=== PATIENT | female | born 1965 | race African-American/Black ===

== ENCOUNTER 2017-01-04 12:42 | Emergency (ER) | payer OTHER ==
[~2017-01-04] VITALS: Ht 172.7 cm; Wt 77.1 kg
[2017-01-04 12:53] VITALS: BP 152/97
[2017-01-04] MEDS ORDERED: ORETIC25 MG PO (12:56)
--- NOTE | 2017-01-04 13:07 | NUR ---
PATIENT PRESENTS TO ED STATES SHE THINKS SHES HAVING A REATION TO HYDROCHLORATHIAZIDE, C/O DRY MOUTH,HEADACHE, HAND AND FEET TINGLING WHEN WAKING UP, AND OVERALL FEELING DEHYDRATED .DENIES N/V/D; SKIN IS PINK/WARM/DRY; AAOX4 WITH EVEN AND STEADY GAIT; LUNGS CLEAR BL; HR EVEN AND REGULAR; PT DENIES ANY FEVER, CP, SOB, OR COUGH AT THIS TIME; PATIENT STATES PAIN OF 6/10/HEADACHE AT THIS TIME; PATIENT POSITIONED FOR COMFORT; HOB ELEVATED; BEDRAILS UP X2; BED DOWN. ER MD MADE AWARE OF PT STATUS.
--- NOTE | 2017-01-04 13:19 | NUR ---
DR. GUEVARA AT BEDSIDE
[2017-01-04 13:33] VITALS: BP 140/94
--- NOTE | 2017-01-04 13:34 | NUR ---
Patient discharged with v/s stable. Written and verbal after care instructions given and explained. Patient verbalized understanding. Ambulatory with steady gait. All questions addressed prior to discharge. Advised to follow up with PMD.
== END 2017-01-04 13:34 | disposition home or self-care (01) ==
LOC: MED 12:42
DX: E86.0 Dehydration (principal); I10 Essential (primary) hypertension; F17.200 Nicotine dependence, unspecified, uncomplicated; Z90.722 Acquired absence of ovaries, bilateral

== ENCOUNTER 2018-03-25 10:21 | Emergency (ER) | payer OTHER ==
[~2018-03-25] VITALS: Ht 172.7 cm; Wt 81.9 kg
[~2018-03-25 10:21] MED LIST: ORE25 PO
[2018-03-25 10:24] VITALS: BP 137/81
--- NOTE | 2018-03-25 10:31 | NUR ---
PT TAKEN IN WHEELCHAIR TO ER BED 02
--- NOTE | 2018-03-25 10:34 | NUR ---
REPORT GIVEN TO CRIS العراقي
--- NOTE | 2018-03-25 10:41 | NUR ---
PATIENT PRESENTS TO ED WITH PT STATES 5 DAYS AGO AWOKE WITH SORENESS TO RIGHT UPPER THIGH RADIATING RLE---WENT TO WORK AND BY TH PAIN WAS SEVERE---- SEEN IN [facility]RGENT CARE DEPT RX "MUSCLE RELAXANT" AND MOTRIN 600MG PT CONTINUES TO BE SEVERE .DENIES N/V/D; SKIN IS PINK/WARM/DRY; AAOX4 WITH EVEN AND STEADY GAIT; LUNGS CLEAR BL; HR EVEN AND REGULAR; PT DENIES ANY FEVER, CP, SOB, OR COUGH AT THIS TIME; PATIENT STATES PAIN OF 10/10 AT THIS TIME; VSS; PATIENT POSITIONED FOR COMFORT; HOB ELEVATED; BEDRAILS UP X2; BED DOWN. ER MD MADE AWARE OF PT STATUS.
[2018-03-25] MEDS ORDERED: MORPHINE SULFATE 4 MG/ML SYR IM ONE (11:00)
--- NOTE | 2018-03-25 11:21 | NUR ---
MEDICATED WRITTEN ---WILL OBSERVE FOR PAIN CONTROL
--- NOTE | 2018-03-25 11:28 | NUR ---
Note undone in EDM - 03/25/18 at 1130 by KATHYA Patient discharged with v/s stable. Written and verbal after care instructions given and explained. Patient alert, oriented and verbalized understanding of instructions. Ambulatory with steady gait. All questions addressed prior to discharge. ID band removed. Patient advised to follow up with PMD. Rx of ZOFRAN/MOTRIN/PRILOSEC given. Patient educated on indication of medication including possible reaction and side effects. Opportunity to ask questions provided and answered.
--- NOTE | 2018-03-25 12:07 | NUR ---
Patient discharged with v/s stable. Written and verbal after care instructions given and explained. Patient alert, oriented and verbalized understanding of instructions. Ambulatory with steady gait. All questions addressed prior to discharge. ID band removed. Patient advised to follow up with PMD. Rx of VALIUM/NORCO/MOTRIN given. Patient educated on indication of medication including possible reaction and side effects. Opportunity to ask questions provided and answered.
[2018-03-25 12:08] VITALS: BP 132/78
== END 2018-03-25 12:07 | disposition home or self-care (01) ==
LOC: MED 10:21
DX: M25.551 Pain in right hip (principal); M79.1 Myalgia; I10 Essential (primary) hypertension; Z79.899 Other long term (current) drug therapy
CPT/HCPCS: 96372; 99283; J2270

== ENCOUNTER 2019-02-21 06:05 | Day surgery (SDC) | payer OTHER ==
[~2019-02-21] VITALS: Ht 172.7 cm; Wt 80.7 kg
[2019-02-21] MEDS ORDERED: AMLO10TA4 PO (07:04)
[2019-02-21] MEDS ORDERED: LIDOCAINE 2% 100 MG/5 ML UJET TP ONE (07:29)
[2019-02-21] MEDS ORDERED: fentaNYL 0.05 MG/ML VIAL ONE (07:29)
[2019-02-21] MEDS ORDERED: fentaNYL 0.05 MG/ML VIAL IVP ONE (08:40)
== END 2019-02-21 08:43 | disposition home or self-care (01) ==
LOC: MDS 06:05 → MMU 06:08 → MDS 08:43
PROVIDERS: ATTEND Internal Medicine Gastroenterology
DX: K63.89 Other specified diseases of intestine (principal); K57.30 Diverticulosis of large intestine without perforation or abscess without bleeding; I10 Essential (primary) hypertension; E66.3 Overweight; F17.210 Nicotine dependence, cigarettes, uncomplicated; Z68.27 Body mass index [BMI] 27.0-27.9, adult; Z90.721 Acquired absence of ovaries, unilateral; Z72.89 Other problems related to lifestyle; Z79.899 Other long term (current) drug therapy; Z98.890 Other specified postprocedural states
CPT/HCPCS: 45380; 88305; J3010

== ENCOUNTER 2021-12-16 20:21 | Emergency (ER) | payer OTHER ==
[~2021-12-16] VITALS: Ht 174 cm; Wt 85.0 kg
[~2021-12-16 20:21] MED LIST changes: +AMLO10TA89 PO; +HYDR-4004 PO; -ORE25 PO
[2021-12-16 20:32] VITALS: BP 150/90
[2021-12-16] MEDS ORDERED: IBUPROFEN 600 MG TAB PO ONE (21:05)
[2021-12-16] MEDS ORDERED: IBUP-2213 PO (21:44)
[2021-12-16] MEDS ORDERED: ACET-10509 PO (21:44)
[2021-12-16] MEDS ORDERED: BACO TP (21:44)
--- NOTE | 2021-12-16 22:40 | NUR ---
d/c with VSS. d/c education given. opportunity to ask questions givne and answered. rx of motrin, tylenol and bacitracin given.
[2021-12-17] MEDS ORDERED: BACO TP (13:21)
[2021-12-17] MEDS ORDERED: ACET-10509 PO (13:21)
[2021-12-17] MEDS ORDERED: IBUP-2213 PO (13:21)
== END 2021-12-16 22:40 | disposition home or self-care (01) ==
LOC: MED 20:21
DX: S93.401A Sprain of unspecified ligament of right ankle, initial encounter (principal); M79.662 Pain in left lower leg; Z79.2 Long term (current) use of antibiotics; Z79.1 Long term (current) use of non-steroidal anti-inflammatories (NSAID); Z79.899 Other long term (current) drug therapy; V03.90XA Pedestrian on foot injured in collision with car, pick-up truck or van, unspecified whether traffic or nontraffic accident, initial encounter; Y93.89 Activity, other specified; Y92.410 Unspecified street and highway as the place of occurrence of the external cause; Y99.8 Other external cause status
CPT/HCPCS: 73590; 73610; 99284; Q0092